=== PATIENT | male | born 1965 | race Hispanic/Latino ===

== ENCOUNTER 2024-08-31 22:31 | Emergency (ER) | payer BC ==
[~2024-08-31] VITALS: Ht 170.2 cm; Wt 93.0 kg
[2024-08-31 22:48] VITALS: PULSE 85; RESP 19; TEMP 98.5
[2024-08-31] MEDS ORDERED: LIDOCAINE HCL 1% LOCAL INJ 20 ML VIAL ONE (23:37)
[2024-09-01] MEDS: LIDOCAINE HCL 1% LOCAL INJ 20 ML VIAL INJ STA (00:04)
[2024-09-01 00:12] VITALS: BP 129/89; PULSE 89; RESP 16; TEMP 98.2; O2SAT 99
== END 2024-09-01 00:08 | disposition home or self-care (01) ==
LOC: ER 22:38
DX: S63.286A Dislocation of proximal interphalangeal joint of right little finger, initial encounter (principal); W10.8XXA Fall (on) (from) other stairs and steps, initial encounter; Y93.01 Activity, walking, marching and hiking; Y92.89 Other specified places as the place of occurrence of the external cause; I10 Essential (primary) hypertension; E11.9 Type 2 diabetes mellitus without complications; E78.5 Hyperlipidemia, unspecified; F17.210 Nicotine dependence, cigarettes, uncomplicated
CPT/HCPCS: 26775; 73140; 99283; J2001